=== PATIENT | female | born 1945 | race Caucasian/White ===

== ENCOUNTER 2023-02-12 21:06 | Outpatient (CLI) | payer MEDICARE, SELFPAY | END 2023-02-12 21:07 | disposition home or self-care (01) | LOC: AMB 03-04 00:04 | PROVIDERS: PCP Physician Assistant Medical; Visit Provider Internal Medicine | DX: S22.42XD Multiple fractures of ribs, left side, subsequent encounter for fracture with routine healing (principal) | CPT/HCPCS: A0425; A0427 ==

== ENCOUNTER 2023-03-14 14:28 | Emergency (ER) | payer MEDICARE, SELFPAY ==
[2023-03-14 14:54] VITALS: BP 147/92; PULSE 82; RESP 18; TEMP 36.4; O2SAT 99; BMI 26.6
--- NOTE | 2023-03-14 16:40 | CRLHL7_ITS ---
For Patients: As a result of the Century Cures Act, medical imaging exams and procedure reports are released immediately into your electronic medical record. You may view this report before your referring provider. If you have questions, please contact your health care provider. Indication: Abdominal pain, possible constipation. Technique: Abdomen 3 view. Comparison: None. Findings: Bowel: Bowel pattern is normal. The amount of colonic stool is within normal limits. Other: No sign of free air. No sign of soft tissue mass. No suspicious calcifications. Mild rotoscoliosis of the lumbar spine. Impression: Unremarkable abdomen. No sign of constipation or bowel obstruction. Dictated by Mohinder Jones MD @ 03/14/2023 5:45:08 PM (Electronically Signed)
[2023-03-14 16:41] VITALS: BP 167/101; PULSE 73; RESP 20; O2SAT 99
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
[2023-03-14 17:11] LABS: Appearance Urine Clear (Clear); Bilirubin Urine Negative (Negative); Blood Urine Negative (Negative); Color Urine Yellow (Yellow); Glucose Urine Negative (Negative); Ketones Urine Negative (Negative); Leukocyte Esterase Urine Negative (Negative); Nitrite Urine Negative (Negative); Protein Urine Negative (Negative); Specific Gravity Urine 1.015 (1.000-1.030); Urobilinogen Urine 0.2 (0.2-1.0); pH Urine 8.5 (5.0-8.5)
[2023-03-14 17:29] LABS: Basophils Absolute Auto 0.05 K/uL (0.00-0.30); Basophils Percent Auto 0.7 % (0.0-3.0); Eosinophils Absolute Auto 0.16 K/uL (0.00-0.50); Eosinophils Percent Auto 2.2 % (0.0-7.0); Hematocrit 39.2 % (33.0-51.0); Hemoglobin* 13.1 gm/dL (12.0-16.0); Lymphocytes Absolute Auto 1.81 K/uL (0.90-2.90); Lymphocytes Percent Auto 24.4 % (20-44); Mean Corpuscular HGB Conc 33 gm/dL (32-36); Mean Corpuscular Hemoglobin 30 pg (26-34); Mean Corpuscular Volume 90 fL (80-100); Monocytes Percent Auto 8.1 % (0.0-11.0); Neutrophils Absolute Auto 4.79 K/uL (1.7-7.0); Neutrophils Percent Auto 64.6 % (42.0-72.0); Platelet Count* 397 K/uL (140-440); RDW Coefficient of Variation % 13.7 % (11.5-15.5); Red Blood Count 4.34 m/uL (4.00-5.20); White Blood Count* 7.41 K/uL (4.50-11.00)
[2023-03-14] MEDS: 0.9 % SODIUM CHLORIDE 1000 ml 1,000 ML IV (17:31)
[2023-03-14 17:32] LABS: Bacteria Urine Few; RBC Urine 0-2 (0-2); Squamous Epithelial Cell Urine Few (None-Few); WBC Urine 0-2 (0-5)
[2023-03-14 17:35] LABS: Slide Review Reflex No
[2023-03-14 17:41] VITALS: BP 169/98; PULSE 76; RESP 22; O2SAT 100
[2023-03-14 18:01] LABS: H pylori Ag Stool* Negative (Negative)
[2023-03-14 18:27] VITALS: BP 173/102; PULSE 71; RESP 20; O2SAT 98
[2023-03-14 18:27] LABS: Albumin* 3.7 g/dL (3.3-5.0); Chloride* 106 mmol/L (96-114)
[2023-03-14 18:28] LABS: Potassium* 3.8 mmol/L (3.6-5.1); Sodium* 138 mmol/L (135-149)
[2023-03-14 18:30] LABS: Creatinine* 0.7 mg/dL (0.5-1.5); Estimated Glomerular Filt Rate 88 ml/min
[2023-03-14 18:31] LABS: Alanine Aminotransferase* 17 U/L (4-35); Alkaline Phosphatase* 79 U/L (40-150); Anion Gap 9 mEq/L (7-15); Aspartate Amino Transferase* 24 U/L (12-35); Bilirubin Total* 0.8 mg/dL (0.1-1.5); Blood Urea Nitrogen* 9 mg/dL (7-30); Calcium* 9.5 mg/dL (8.4-10.6); Carbon Dioxide* 23 mmol/L (20-32); Glucose* 92 mg/dL (60-115); Lipase* 81 U/L (23-300); Total Protein* 6.2 g/dL (6.0-8.3)
[2023-03-14 18:34] LABS: C Reactive Protein* < 0.5 mg/dL (0.5-1.0)
[2023-03-14] MEDS: PANTOPRAZOLE SODIUM 40 MG INJ IVP (18:50)
== END 2023-03-14 19:02 | disposition home or self-care (01) ==
PROVIDERS: Emergency Provider Emergency Medicine
DX: R10.9 Unspecified abdominal pain (principal); S36.00XA Unspecified injury of spleen, initial encounter
CPT/HCPCS: 36415; 74019; 80048; 80076; 81001; 83690; 85025; 86140; 87086; 87338; 96374; 99284; C9113; J7030

== ENCOUNTER 2023-09-01 11:15 | Outpatient (RCR) | payer MEDICARE, SELFPAY | END 2023-12-30 23:59 | disposition home or self-care (01) | PROVIDERS: Visit Provider Family Medicine | DX: H81.11 Benign paroxysmal vertigo, right ear (principal); R26.89 Other abnormalities of gait and mobility; R44.8 Other symptoms and signs involving general sensations and perceptions; Z51.89 Encounter for other specified aftercare | CPT/HCPCS: 97110; 97140; 97162 ==